=== PATIENT | female | born 2005 | race Caucasian/White ===

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

== ENCOUNTER 2024-10-19 22:45 | Outpatient (CLI) | payer MEDICAID, SELFPAY ==
[2024-10-19 22:45] VITALS: BMI 31.7
[2024-10-19 23:08] VITALS: BP 122/63; PULSE 71
[2024-10-19 23:13] VITALS: TEMP 36.7
[2024-10-19 23:23] VITALS: BP 120/64; PULSE 68
[2024-10-19 23:38] VITALS: BP 117/69; PULSE 67
[2024-10-19 23:41] VITALS: BP 117/69; BP 117/71; PULSE 67; PULSE 69; O2SAT 100
== END 2024-10-19 23:47 | disposition home or self-care (01) ==
LOC: OPOB 23:01 → OBGYN 23:02
PROVIDERS: Visit Provider Family Medicine
DX: O36.8190 Decreased fetal movements, unspecified trimester, not applicable or unspecified (principal); Z3A.00 Weeks of gestation of pregnancy not specified
CPT/HCPCS: 59025; 99211

== ENCOUNTER 2024-12-02 04:55 | Inpatient (IN) | payer MEDICAID, SELFPAY ==
[2024-12-02] VITALS (56 sets, daily range): BP systolic 113–156; BP diastolic 57–92; PULSE 59–93; RESP 16–17; TEMP 36–36.7; O2SAT 90–100; BMI 34.7
[2024-12-02 04:51] LABS: Nitrazine Paper, PH Negative
[2024-12-02 05:31] LABS: Basophils # 0.1 10^3/uL (0.0-0.1); Basophils % 0.3 %; Eosinophils # 0.2 10^3/uL (0.0-0.8); Hematocrit 32.5 % (36-47); Lymphocytes # 2.9 10^3/uL (1.5-6.5); Lymphocytes % 18.7 %; Mean Corpuscular Hemoglobin 23.6 pg (27-33); Mean Corpuscular Volume 73.9 fl (85-98); Mean Platelet Volume 10.4 fL (7.4-10.4); Monocytes # 1.2 10^3/uL (0.2-0.9); Monocytes % 7.9 %; Neutrophils # 11.16 10^3/uL (1.8-8.0); Neutrophils % 71.5 %; Nucleated Red Blood Cells % 0.1 %; Platelet Count 252 10^3/cmm (157-399); Red Cell Distribution Width 15.8 % (12.1-15.1); White Blood Count 15.64 10^3/uL (4.5-13.0)
[2024-12-02] MEDS: lactated ringers 1,000 ML 999 ML IV (05:40)
[2024-12-02] MEDS: ROPivacaine syringe 100 MG/50 ML SYRINGE 10 MG EPIDURAL (06:38)
--- NOTE | 2024-12-02 06:41 | P.ANESASSM_ITS ---
Pre-Anesthetic Assessment Height/Weight: Height 1.63 m Weight 91.626 kg Temp Pulse BP Pulse Ox O2 Del Method 96.8 F L 67 142/84 98 Room Air 12/02/24 05:35 12/02/24 06:38 12/02/24 06:38 12/02/24 06:35 12/02/24 06:04 Epidural Familial anesthetic complications: None Was Beta Elvia taken within 24 hours: N/A Was Clonidine taken within 24 hours: N/A Social No alcohol and No tobacco Exam alert, oriented x 3, clear to auscultation bilaterally and regular rate & rhythm Airway Submandibular: within normal limits Cervical ROM: within normal limits Mallampati: Class II Dentition: full History/ROS No significant history except as noted and No significant complaints Pulmonary None reported CV/HEM None reported None reported Hepatic None reported GI None reported Metabolic None reported Musc/skel None reported Neuropsych Anxiety Anesthetic Plan ASA status: 2 Anesthesia: Regional (specify below) (Epidural) Risk of > 500 ml blood loss (7ml/kg in children): Yes, adequate IV access and fluids planned Medications/Allergies Home Medications ?Medication ?Instructions ?Recorded ?Confirmed ?Last Taken ?Type Sole Supports #1 ea 01/02/21 10/06/22 Unkn own Rx darco toe alignment splint #1 ea 08/08/21 10/06/22 Unk nown Rx Custom Molded Orthotics #1 ea 09/04/21 10/06/22 Unkn own Rx Sole supports #1 ea 11/04/21 10/06/22 Unkn own Rx dextroamphetamine-amphetamine ER 20 mg PO DAILY 30 day s #30 caps 02/25/24 02/25/24 Unknown Rx 20 mg 24hr capsule,extend release (Adderall XR) Allergies Allergy/AdvReac Type Severity Reaction Status Date / Time cephalexin Allergy Intermediate hives Verified 12/02/24 05:16 Current Medications Generic Name Dose Route Start Last Admin Trade Name Freq PRN Reason Stop Dose Admin Lactated Ringer's 1,000 mls @ 999 mls/hr 12/02/24 05:11 12/02/24 05:40 Lactated Ringers IV 999 mls/hr .Q1H1M PRN Administration See label comments PFSH Anesthesia Medical History (Updated 02/25/24 @ 15:03 by Lenora Cabrera MD) No pertinent past medical history Surgical History No history of previous surgery Social History Smoking and tobacco/nicotine status: never used tobacco/nicotine Second hand smoke exposure: No Alcohol intake: never Substance/Drug Use: never 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
--- NOTE | 2024-12-02 06:43 | ANES.PROC ---
Anesthesia Procedures Procedure/Date: 12/02/24 Epidural: Time Out Performed: Yes Consents Signed: Procedure Consent and NPO Consent Consent: requested by attending/covering physician, from patient, risks and benefits reviewed and patient agrees to proceed Lumbar Level: L3-L4 Epidural position: sitting Epidural procedure: sterile prep of area (betadine), 1% lidocaine to numb the area (3 mLs), neg for paresthesia, test dose given, 1.5% xylocaine 1:200k epi (3 mLs/ 2 mLs), placed PCEA, no systemic response, sterile dressing applied, L.U.D. no apparent complications and 0.2% Ropiavacaine @ mls/hr (13) Additional Comments: ALLAN 6cm, catheter threaded to 11cm. Negative for CSF and blood on aspiration.
--- NOTE | 2024-12-02 09:32 | PM.OPHPUD ---
Labor & Delivery H&P Update Date of Procedure: December 02, 2024 Date H&P Performed: 11/30/24 Changes to previous documentation: The patient presented in active labor with cervical change Admission Diagnosis: 19-year-old 1 at 37 weeks and 6 days estimated gestational age Planned procedure: Vaginal delivery Other information: The patient is a pleasant female who has had an unremarkable . She has had consistent care. There have been no concerns. Her blood type is a positive. Her antibody screen is negative. Her glucose screen was negative. She is GBS negative. She is rubella immune. The remainder infectious disease profile is within normal limits. Related Problem List Diagnoses (1) 37 weeks gestation of : A&P Assessment and plan (1) 37 weeks gestation of : I anticipate routine labor and delivery. The patient received an epidural and is very comfortable at this time. Status: Acute PDMP PDMP Reviewed: Not Reviewed
[2024-12-02] MEDS: oxytocin 30 UNIT/500 ML BAG 600 UNIT IV (10:51)
[2024-12-02] MEDS: fentaNYL 50 mcg/mL INJ 2mL 25 MCG IVP (11:12)
[2024-12-02] MEDS: benzocaine-menthol 78 gm Canister 1 SPRAY TOPICAL (12:17)
[2024-12-02] MEDS: HYDROcodone-acetaminophen 5-325 mg Tablet PO (12:17)
[2024-12-02] MEDS: lanolin oint 7 gm 1 APPLIC TOPICAL (12:17)
[2024-12-02] MEDS: docusate sodium 100 mg Capsule PO (17:38)
[2024-12-02] MEDS: ibuprofen 800 mg tablet PO ×2 (17:38→20:30)
[2024-12-03 02:35] LABS: Mean Corpuscular HGB Conc 31.9 g/dL (30-55); Mean Corpuscular Hemoglobin 23.9 pg (27-33); Mean Corpuscular Volume 74.9 fl (85-98); Mean Platelet Volume 11.3 fL (7.4-10.4); Platelet Count 205 10^3/cmm (157-399); Red Blood Count 3.47 10^6/uL (3.85-5.65); Red Cell Distribution Width 16.1 % (12.1-15.1); White Blood Count 12.62 10^3/uL (4.5-13.0)
[2024-12-03 04:54] VITALS: BP 95/61; PULSE 73; RESP 16; TEMP 36.7; O2SAT 96
[2024-12-03] MEDS: PRENATAL VIT NO.130/IRON/FOLIC 1 EACH TABLET PO (10:23)
[2024-12-03] MEDS: ibuprofen 800 mg tablet PO ×2 (10:23→15:25)
[2024-12-03] MEDS: docusate sodium 100 mg Capsule PO (10:24)
[2024-12-03 10:30] VITALS: BP 104/66; PULSE 81; RESP 16; TEMP 36.7
--- NOTE | 2024-12-03 12:45 | P.PCNOB_ITS ---
Delivery Note: Date of delivery: December 03, 2024 Pre-delivery diagnoses: 19-year-old 1 at 38 weeks estima gamaliel gestational age presenting in active labor Post-delivery diagnoses: Status post spontaneous vaginal delivery Procedure: Spontaneous vaginal delivery Delivering Physician: Sidney Santiago Estimated blood loss (mL): 150 Pre-Delivery Course: The patient presented to the hospital in active labor. An epidural was placed. Spontaneous rupture membranes occurred within a few hours of delivery. Delivery: DELIVERY: The patient progressed to complete without difficulty. She delivered a female with a weight of 7 pounds 0 ounces with Apgars of 9, 10. The baby was delivered from the LOP position and placed on the mother's abdomen. The cord wa s then clamped and cut. There was no nuchal cord. There was no meconium. The placenta and 3 vessel cord were delivered intact shortly thereafter. The perineum and vaginal vault were carefully examined. No lacerations were noted. Both the mother and the baby were in stable condition. Post-Delivery Status: Good A&P Assessment and plan (1) 37 weeks gestation of : I anticipate routine care (2) Spontaneous vaginal delivery: PDMP PDMP Reviewed: Not Reviewed Coding Level of Care Code Acute Code for Chg Fwd Diagnoses 37 weeks gestation of Z3A.37 Spontaneous vaginal delivery O80
--- NOTE | 2024-12-03 12:49 | PM.OBGYDC ---
Discharge Providers REMOTE SENSING PROGRAM MANAGER Date of Admission: 12/02/24 04:55 Date of Discharge: 12/03/24 Attending Provider at Admission: Sidney Santiago MD Attending Provider at Discharge: Sidney Santiago MD Diagnoses at Discharge Discharge Diagnosis (1) 37 weeks gestation of : Status: Acute (2) Spontaneous vaginal delivery: Status: Acute Reason for Visit Reason for Visit: Poss SROM with contractions Hospital Course Hospital Course The patient presented to the hospital in active labor. An epidural was placed. Spontaneous rupture membranes occurred. She progressed to complete and had an unremarkable vaginal delivery. She had a first-degree posterior right vaginal wall tear that was repaired in usual fashion. Her course was unremarkable. She has had some difficulties with breast-feeding but has had some good feeds as well. Her bleeding has been within normal limits. Her pain is been well-controlled. Information Peripartum Data: Infant Delivery Method: Vaginal Physical Exam Narrative: The patient is alert. She appears comfortable. Her heart has a regular rate and rhythm with no murmurs appreciated. Lungs are clear to auscultation bilaterally. Her fundus is firm and below the umbilicus. Urinary Catheter Management: [place]: Cath Placed During This Visit: yes, but has since been removed by the nurse Reason for Continuing Indwelling Catheter: Decision to DC Catheter Urinary Catheter Date of Insertion: 12/02/24 Urinary Catheter Time of Insertion: 07:19 Date Urinary Catheter Removed: 12/02/24 Time Urinary Catheter Discontinued: 09:15 Discharge Data Studies Completed and Pending Laboratory Results WBC 12.62 10^3/uL (4.5-13.0) 12/03/24 00:21 RBC 3.47 10^6/uL (3.85-5.65) L 12/03/24 00:21 Hgb 8.30 g/dL (12.4-14.8) L 12/03/24 00:21 Hct 26.0 % (36-47) L 12/03/24 00:21 MCV 74.9 fl (85-98) L 12/03/24 00:21 MCH 23.9 pg (27-33) L 12/03/24 00:21 MCHC 31.9 g/dL (30-55) 12/03/24 00:21 RDW 16.1 % (12.1-15.1) H 12/03/24 00:21 Plt Count 205 10^3/cmm (157-399) 12/03/24 00:21 MPV 11.3 fL (7.4-10.4) H 12/03/24 00:21 Neut % (Auto) 71.5 % 12/02/24 05:20 Lymph % (Auto) 18.7 % 12/02/24 05:20 [place] % (Auto) 7.9 % 12/02/24 05:20 Eos % (Auto) 1.0 % 12/02/24 05:20 Baso % (Auto) 0.3 % 12/02/24 05:20 Neut # (Auto) 11.16 10^3/uL (1.8-8.0) H 12/02/24 05:20 Lymph # (Auto) 2.9 10^3/uL (1.5-6.5) 12/02/24 05:20 [place] # (Auto) 1.2 10^3/uL (0.2-0.9) H 12/02/24 05:20 Eos # (Auto) 0.2 10^3/uL (0.0-0.8) 12/02/24 05:20 Baso # (Auto) 0.1 10^3/uL (0.0-0.1) 12/02/24 05:20 Nucleated RBC % (auto) 0.1 % 12/02/24 05:20 Nucleated RBCs # 0.0 /100WBC 12/02/24 05:20 Fluid pH (paper) Negative 12/02/24 04:20 Blood Type A Positive 12/02/24 05:20 Rho(D) Type Rh positive 12/02/24 05:20 Antibody Screen Negative 12/02/24 05:20 Vitals Last Vital Signs Temp 98.0 F 12/03/24 10:30 Pulse 81 12/03/24 10:30 Resp 16 12/03/24 10:30 BP 104/66 12/03/24 10:30 Pulse Ox 96 12/03/24 04:54 O2 Del Method Room Air 12/03/24 10:30 Results Labs OB ([facility]): Obstetrics US 09/05/24 Blood Type A Positive 12/02/24 Antibody Screen Negative 12/02/24 Hct, (36-47) 26.0 % L Today Hgb, (12.4-14.8) 8.30 g/dL L Today Rho(D) Type Rh positive 12/02/24 Plt Count, (157-399) 205 10^3/cmm Today Discharge Plan Discharge Patient Disposition: Home Condition: Stable Prescriptions: New ibuprofen 800 mg Tablet 800 mg PO TID Qty: 45 0RF Continued 1 tab PO DAILY Discharge Orders: Discharge Order (Routine); Ordered 12/03/24 Ordered By: Sidney Santiago Referrals: Sidney Santiago MD [Physician, Family Practice] - 6 Weeks Discharge Diet: Usual diet Discharge Activity: Limit activity as instructed Patient Instructions: Depression (DC), Bleeding (ED), Preeclampsia and Eclampsia After Delivery (GEN), Hemorrhage (DC), OB Discharge Report, OB Food/Drug Interaction Guide, OB Care at Home, Opioid Safety, OB Home Care, OB Vaginal Deliveries Discharge Attestations REMOTE SENSING PROGRAM MANAGER Time Spent in Discharge Care*: less than 30 min Coding Level of Care Code Acute Code for Chg Fwd Diagnoses 37 weeks gestation of Z3A.37 Spontaneous vaginal delivery O80
[2024-12-03 15:23] VITALS: BP 118/77; PULSE 81; RESP 18; TEMP 36.9
[2024-12-03 16:45] VITALS: BP 133/86; PULSE 80; RESP 16; TEMP 36.9
[2024-12-03 17:10] VITALS: BP 133/86; PULSE 80; RESP 16; TEMP 36.9; O2SAT 98
== END 2024-12-03 16:58 | disposition home or self-care (01) | DRG 807 ==
LOC: OPOB 04:57 → OBGYN 04:57
PROVIDERS: Admitting Provider Family Medicine; Visit Provider Family Medicine
DX: O71.4 Obstetric high vaginal laceration alone (principal); Z37.0 Single live birth; Z3A.37 37 weeks gestation of pregnancy
CPT/HCPCS: 36415; 51702; 59025; 59409; 83986; 85025; 85027; 86850; 86900; 99211; J2590; J2795; J3010; J7120; J9999